=== PATIENT | female | born 1945 | race Caucasian/White ===

== ENCOUNTER → 2016-09-18 | Outpatient (CLI) | payer MEDICARE, OTHER | LOC: WI 09:36 | PROVIDERS: ATTEND Family Medicine | DX: Z12.31 Encounter for screening mammogram for malignant neoplasm of breast (principal); Z13.820 Encounter for screening for osteoporosis | CPT/HCPCS: 77080; G0202; 77067 ==

== ENCOUNTER 2018-08-14 16:42 | Inpatient (IN) | payer MEDICARE, OTHER ==
[2018-08-14] MEDS ORDERED: ACETAMINOPHEN 325 MG TABLET PO ONE (17:09)
--- NOTE | 2018-08-14 17:12 | ER Document Report ---
ED Fall - General Stated Complaint: NAUSEA/VOMITING Time Seen by Provider: 08/14/18 16:56 Primary Care Provider: RAMSEY NARANJO MD [Primary Care Provider] - Follow up as needed Information source: Patient TRAVEL OUTSIDE OF THE [place] IN LAST 30 DAYS: No - HPI Patient complains to provider of: Nausea vomiting Notes: Patient is here with complaints of pain in the right hip and right elbow with nausea vomiting. The patient has had prior right hip replacement. She states that she fell yesterday at home landing on her right elbow and her right hip and was diagnosed with a right pelvis fracture and a right elbow fracture at [place]. She states that they spoke with her orthopedist who recommended that the patient be placed in a sling, and she could follow-up in the office as an outpatient. She was given a prescription for tramadol as well as Zofran. She states that typically she does well with tramadol as she does not tolerate other narcotic types of pain medication. She states that since last evening she has been having nausea vomiting, she is not been able to keep her pain medication down which is caused her to have increasing pain. She does complain of a headache. She is on blood thinning medications. She does not believe that she struck her head when she fell, but she states that she has had a headache since she fell yesterday. Headache is getting somewhat worse. She denies any unilateral numbness, tingling, weakness. No chest pain or shortness of breath. No abdominal pain. No diarrhea. No rash. No fever. Pain in her elbow and hip is constant, moderate, worse with movement, better with rest. No other specific complaints at this time. - Related data Allergies/Adverse Reactions: codeine [Codeine] Allergy (Verified 08/14/18 17:46) metronidazole [Metronidazole] Allergy (Verified 08/14/18 17:46) morphine [Morphine] Allergy (Verified 08/14/18 17:46) procaine HCl [From Novocain] Allergy (Verified 08/14/18 17:46) Oxnqgzd-Nuk-Zeu Reductase Inhibitor Allergy (Verified 08/14/18 17:46) Past Medical History - Social History Smoking Status: Unknown if Ever Smoked Family History: Reviewed & Not Pertinent GI Medical History: Reports: Hx Gastroesophageal Reflux Disease Past Surgical History: Reports: Hx Orthopedic Surgery - left knee replacement - Immunizations Hx Diphtheria, Pertussis, Tetanus Vaccination: Yes Review of Systems - Review of Systems -: Yes All other systems reviewed and negative Physical Exam - Vital signs Vitals: Temp Pulse Resp BP Pulse Ox 97.8 F 98 18 158/66 H 92 08/14/18 22:53 08/14/18 22:53 08/14/18 22:53 08/14/18 22:53 08/14/18 22:53 - Notes Notes: GENERAL: alert, cooperative, nontoxic, no distress. HEAD: normocephalic, atraumatic EYES: conjunctiva pink without discharge, no external redness or swelling. Pupils equal round react light bilaterally. Extra muscles are intact bilaterally. EARS: no external swelling, no external redness NOSE: atraumatic, no external swelling MOUTH/THROAT: mucous membranes moist and pink, posterior pharynx without er ythema, swelling, exudate. No trismus or drooling. NECK: soft, supple, full range of motion, no meningismus. CHEST: no distress, lungs clear and equal throughout. No wheezing, rales, rhonchi. CARDIAC: regular rate and rhythm, no murmur, normal capillary refill, normal pulses. No peripheral edema noted. ABDOMEN: Soft, nontender. No rebound tenderness or guarding. No mass. BACK: full range of motion, no CVA tenderness. EXTREMITIES: Tenderness to palpation to the right elbow. Slightly limited range of motion secondary to pain. Normal pulse and sensation distally. Normal compartments. Slightly limited range of motion of the right hip with pain and tenderness to palpation. No redness or swelling. Normal pulse and sensation distally. Knee exam is normal. NEURO: alert and oriented x 3, no focal deficits, full range of motion of all extremities. Cranial nerves II through XII are grossly intact. PYSCH: appropriate mood, affect. Patient is cooperative. SKIN: pink, warm, dry, no rash. Course - Re-evaluation Re-evalutation: 08/14/18 19:37 Patient is feeling better at this time but still has a decent amount of pain. Head CT is negative, CT of neck is negative. X-rays of the right elbow show a comminuted radial head fracture, x-rays of the right hip show an inferior and superior pubic rami fracture. Labs are unremarkable for any significant abnormalities. Patient is unable to ambulate on her own due to the fact that she has a fracture in her right pelvis as well as her right arm. Her who is at home with her recently had spinal surgery is unable to help lift her and she does not have anyone at the house to help her with her daily activities. Due to this, the patient believes that she needs to be admitted to the hospital. I do believe that this is reasonable with the patient is unable to g et her pain under control and is unable to ambulate on her own. Currently have a phone call placed with orthopedics to discuss her fractures with them. After this, we will plan to discuss the case with the hospitalist regarding admission. 08/14/18 20:17 Case discussed with the hospitalist states that the patient does not require admission to the hospital. Am concerned that the patient is unable to care for herself at home due to pain and the fact that she has no family at the house who is able to care for her either. Do believe that the patient may require admission to a [facility] facility or rehab facility due to the fact that she is unable to ambulate due to pain and has no family at the house that is able to help facilitate this. This point we will hold the patient socially in the emergency department overnight until she can be seen and evaluated by social work tomorrow morning. I have discussed the case with my attending physician who agrees with the plan. Patient will be cared for overnight by the oncoming provider. We will continue to monitor the patient throughout the night. 08/15/18 12:02 I have discussed the case with Dr. Naranjo, her primary care doctor. Since the patient is having intractable pain and unable to care for herself, we will admit her to observation for further evaluation and management and to hopefully help with some potential physical and occupational therapy. - Vital Signs Vital signs: Temp Pulse Resp BP Pulse Ox 98.2 F 88 16 126/61 H 94 08/15/18 07:13 08/15/18 07:13 08/15/18 07:13 08/15/18 07:13 08/15/18 07:13 - Laboratory Result Diagrams: 08/14/18 18:26 08/14/18 18:26 Laboratory results interpreted by me: 08/14/18 18:26 WBC 14.0 H Seg Neuts % (Manual) 93 H Lymphocytes % (Manual) 5 L Monocytes % (Manual) 2 L Abs Neuts (Manual) 13.0 H - Diagnostic Test Radiology reviewed: Image reviewed, Reports reviewed - CT head and neck negative for acute findings. X-rays of right hip show superior and inferior pubic rami fractures. X-ray of right elbow shows comminuted radial head fracture. Discharge - Discharge Clinical Impression: Pubic ramus fracture Qualifiers: Encounter type: initial encounter Fracture type: closed Laterality: right Qualified Code(s): S32.591A - Other specified fracture of right pubis, initial encounter for closed fracture Radial head fracture Qualifiers: Encounter type: initial encounter Fracture type: closed Fracture alignment: nondisplaced Laterality: right Qualified Code(s): S52.124A - Nondisplaced fracture of head of right radius, initial encounter for closed fracture Condition: Stable Disposition: ADMITTED OBSERVATION Admitting Provider: Ambrosio Unit Admitted: Medical Floor Referrals: RAMSEY NARANJO MD [Primary Care Provider] - Follow up as needed
--- NOTE | 2018-08-14 17:49 | RADIOLOGY REPORT (SQ) ---
EXAM DESCRIPTION: ELBOW RIGHT OVER 2 VIEWS COMPLETED DATE/TIME: 08/14/2018 5:38 pm REASON FOR STUDY: pain COMPARISON: None. NUMBER OF VIEWS: Four views. TECHNIQUE: AP, lateral, and both oblique radiographic images acquired of the right elbow. LIMITATIONS: None. FINDINGS: MINERALIZATION: Normal. BONES: Comminuted fracture nondisplaced radial head. JOINT: Joint effusion. SOFT TISSUES: No soft tissue swelling. No foreign body. OTHER: No other significant finding. IMPRESSION: Comminuted nondisplaced radial head fracture with joint effusion. TECHNICAL DOCUMENTATION: JOB ID: [id number] [email or web address]- All Rights Reserved Reading location - IP/workstation name: [email or web address]
--- NOTE | 2018-08-14 17:52 | RADIOLOGY REPORT (SQ) ---
EXAM DESCRIPTION: HIP RIGHT AP/LATERAL COMPLETED DATE/TIME: 08/14/2018 5:38 pm REASON FOR STUDY: pain COMPARISON: None. NUMBER OF VIEWS: Two views. TECHNIQUE: AP pelvis and additional frog-leg view of the right hip. LIMITATIONS: None. FINDINGS: There is diffuse osteopenia. Mildly displaced fractures are seen at the superior and infe rior right pubic rami. The patient is status post total right hip arthroplasty. The orthopedic hard hernandez appears intact. No acute fracture or dislocation at the right hip. The left hip joint is maint ained. Degenerative changes at the visualized lower lumbar spine. IMPRESSION: 1. Osteopenia. Mildly displaced fractures at the superior and inferior right pubic lana i. 2. Status post total right hip arthroplasty with no radiographic evidence for acute fracture at the r ight hip. TECHNICAL DOCUMENTATION: JOB ID: [id number] [email or web address] 2010 [employer]- All Rights Reserved Reading location - IP/workstation name: [email or web address]
--- NOTE | 2018-08-14 18:01 | RADIOLOGY REPORT (SQ) ---
EXAM DESCRIPTION: CT HEAD WITHOUT COMPLETED DATE/TIME: 08/14/2018 5:51 pm REASON FOR STUDY: pain COMPARISON: None. TECHNIQUE: Axial images acquired through the brain without intravenous contrast. Images reviewed wi th bone, brain and subdural windows. Images stored on PACS. All CT scanners at this facility use dose modulation, iterative reconstruction, and/or weight based d osing when appropriate to reduce radiation dose to as low as reasonably achievable (ALARA). [facility]: Dose Right [facility]: CareDose [facility]: Dose Right [facility]: Teradose 4D [facility]: Smart Double Fusion RADIATION DOSE: CT Rad equipment meets quality standard of care and radiation dose reduction techniq ues were employed. CTDIvol: 53.2 mGy. DLP: 1044 mGy-cm.mGy. LIMITATIONS: None. FINDINGS: VENTRICLES: Prominent. CEREBRUM: No mass effect. No hemorrhage. No midline shift. Areas of low density in the white matte r most likely due to chronic micro-vascular ischemic change. No evidence for acute territorial infar ction. CEREBELLUM: No hemorrhage. No alteration of density. No evidence for acute infarction. EXTRAAXIAL SPACES: Age-related involutional change. No fluid collections. ORBITS AND GLOBE: Symmetrical contour of the globes. CALVARIUM: No depressed fracture. PARANASAL SINUSES: No air-fluid level. SOFT TISSUES: No hematoma. IMPRESSION: No acute intracranial hemorrhage or depressed calvarial fracture. Chronic changes of at rophy and microvascular ischemia. EVIDENCE OF ACUTE STROKE: NO. TECHNICAL DOCUMENTATION: JOB ID: [id number] [facility] Quality ID # [id number]: Final reports with documentation of one or more dose reduction techniques (e.g., Au tomated exposure control, adjustment of the mA and/or kV according to patient size, use of iterative reconstruction technique) 2010 [employer]- All Rights Reserved Reading location - IP/workstation name: [email or web address]
--- NOTE | 2018-08-14 18:08 | RADIOLOGY REPORT (SQ) ---
EXAM DESCRIPTION: CT CERVICAL SPINE WITHOUT COMPLETED DATE/TIME: 08/14/2018 5:51 pm REASON FOR STUDY: pain COMPARISON: None. TECHNIQUE: Axial images acquired through the cervical spine without intravenous contrast. Images re viewed with lung, soft tissue and bone windows. Reconstructed coronal and sagittal MPR images review ed. Images stored on PACS. All CT scanners at this facility use dose modulation, iterative reconstruction, and/or weight based d osing when appropriate to reduce radiation dose to as low as reasonably achievable (ALARA). [facility]: Dose Right [facility]: CareDose [facility]: Dose Right [facility]: Teradose 4D [facility]: Smart Technologies RADIATION DOSE: CT Rad equipment meets quality standard of care and radiation dose reduction techniq ues were employed. CTDIvol: 17.2 mGy. DLP: 384 mGy-cm. mGy. LIMITATIONS: None. FINDINGS: ALIGNMENT: Anatomic. MINERALIZATION: Normal. VERTEBRAL BODIES: No fractures or dislocation. DISCS: Multilevel disc space narrowing with osteophytes. FACETS, LATERAL MASSES, POSTERIOR ELEMENTS: Facet arthropathy. No fractures. No dislocation. HARDWARE: None in the spine. VISUALIZED RIBS: No fractures. LUNG APICES AND SOFT TISSUES: Linear atelectasis/ scarring at the visualized right lung apex. IMPRESSION: No acute fracture at the cervical spine. Degenerative changes. TECHNICAL DOCUMENTATION: JOB ID: [id number] [place]- Quality ID # [id number]: Final reports with documentation of one or more dose reduction techniques (e.g., Au tomated exposure control, adjustment of the mA and/or kV according to patient size, use of iterative reconstruction technique) 2010 [employer]- All Rights Reserved Reading location - IP/workstation name: [email or web address]
[2018-08-14 18:58] LABS: HEMATOCRIT 39.5 % (36.0-47.0); HEMOGLOBIN 13.1 g/dL (12.0-15.5); MEAN CORPUSCULAR HGB CONC 33.3 g/dL (32.0-36.0); MEAN CORPUSCULAR VOLUME 87 fl (80-97); PLATELET COUNT 190 10^3/uL (150-450); RED BLOOD COUNT 4.53 10^6/uL (3.72-5.28); RED CELL DISTRIBUTION WIDTH 13.8 % (11.5-14.0)
[2018-08-14 19:14] LABS: ABSOLUTE LYMPHOCYTES# (MANUAL) 0.7 10^3/uL (0.5-4.7); ABSOLUTE MONOCYTES # (MANUAL) 0.3 10^3/uL (0.1-1.4); BASOPHILS % (MANUAL) 0 % (0-2); EOSINOPHILS % (MANUAL) 0 % (0-6); LYMPHOCYTES % (MANUAL) 5 % (13-45); MONOCYTES % (MANUAL) 2 % (3-13); SEGMENTED NEUTROPHILS % (MAN) 93 % (42-78); TOTAL CELLS COUNTED 100
[2018-08-14 19:15] LABS: PLATELET COMMENT ADEQUATE; RBC MORPHOLOGY COMMENT NORMO-CYTIC/CHROMIC; TOXIC GRANULATION 1+
[2018-08-14 19:19] LABS: ALANINE AMINOTRANSFERASE 27 U/L (9-52); ALBUMIN 4.3 g/dL (3.5-5.0); ALKALINE PHOSPHATASE 75 U/L (38-126); ANION GAP 12 (5-19); ASPARTATE AMINO TRANSFERASE 18 U/L (14-36); BILIRUBIN,DIRECT 0.3 mg/dL (0.0-0.4); BILIRUBIN,TOTAL 0.6 mg/dL (0.2-1.3); BLOOD UREA NITROGEN 16 mg/dL (7-20); CALCIUM 9.3 mg/dL (8.4-10.2); CARBON DIOXIDE 24 mmol/L (22-30); CHLORIDE 104 mmol/L (98-107); GLUCOSE 110 mg/dL (75-110); POTASSIUM 4.1 mmol/L (3.6-5.0); SODIUM 140.4 mmol/L (137-145); TOTAL PROTEIN 7.1 g/dL (6.3-8.2)
[2018-08-14] MEDS ORDERED: ONDANSETRON HCL INJ/PF 4 MG/2 ML SDV IV PRN (20:19)
[2018-08-14] MEDS ORDERED: IBUPROFEN 400 MG TABLET PO PRN (20:19)
[2018-08-14] MEDS: TRAMADOL HCL 50 MG TABLET PO PRN (23:09)
[2018-08-15] MEDS: ACETAMINOPHEN 325 MG TABLET PO PRN ×2 (07:51→23:25)
[2018-08-15] MEDS ORDERED: PANTOPRAZOLE SODIUM 40 MG TABLET.DR PO ONE (09:37)
[2018-08-15] MEDS: TRAMADOL HCL 50 MG TABLET PO PRN (18:52)
[2018-08-15] MEDS: ENOXAPARIN SODIUM INJ 40 MG/0.4 ML DISP.SYRIN SUBCUT SCH (18:53)
[2018-08-15] MEDS: GABAPENTIN 300 MG CAPSULE PO SCH ×2 (18:53→21:05)
[2018-08-15] MEDS: DULOXETINE HCL 30 MG CAPSULE.DR PO SCH (18:53)
--- NOTE | 2018-08-15 19:46 | PDOC H&P ---
History of Present Illness Admission Date/PCP: 08/15/18 12:16 RAMSEY NARANJO MD Patient complains of: 2d slipped & fell on R hip elbow History of Present Illness: PHOENIX VÁZQUEZ is a 72 year old female 1d fell. sick. Cant move enough to care for self. Past Medical History Cardiac Medical History: Reports: None Pulmonary Medical History: Reports: None EENT Medical History: Reports: None Neurological Medical History: Reports: Other - vertigo Endocrine Medical History: Reports: Hypothyroidism Renal/ Medical History: Reports: None Malignancy Medical History: Reports: None GI Medical History: Reports: Gastroesophageal Reflux Disease Musculoskeltal Medical History: Reports: Arthritis, Other - porosis Skin Medical History: Reports: None Psychiatric Medical History: Reports: None Traumatic Medical History: Reports: None Infectious Medical History: Reports: None Past Surgical History Past Surgical History: Reports: Appendectomy, Hysterectomy, Orthopedic Surgery - left knee replacement, Other - zenkers Social History Lives with: Family Smoking Status: Never Smoker Frequency of Alcohol Use: None Hx Recreational Drug Use: No Hx Prescription Drug Abuse: No - Advance Directive Resuscitation Status: Full Code Family History Family History: CVA, Malignancy Parental Family History Reviewed: Yes Children Family History Reviewed: Yes Sibling(s) Family History Reviewed.: Yes Medication/Allergy Home Medications: Multivitamin [Multivitamins] 1 tab PO DAILY 09/18/13 Ubidecarenone [Co Q-10] 200 mg PO DAILY 09/18/13 l Gasseri/B Bifidum/B Longum [SamsonTouristEye Colon Health Capsule] 1 tab PO QHS 09/18/13 Esomeprazole Magnesium [Nexium 24Hr] 20 mg PO BID 08/15/18 Fexofenadine HCl [Michelle] 180 mg PO DAILY 08/15/18 Fiber [Fiber Choice] 1 each PO DAILY 08/15/18 Montelukast Sodium [Singulair 10 mg Tablet] 10 mg PO QHS 08/15/18 Allergies/Adverse Reactions: codeine [Codeine] Allergy (Verified 08/14/18 17:46) metronidazole [Metronidazole] Allergy (Verified 08/14/18 17:46) morphine [Morphine] Allergy (Verified 08/14/18 17:46) procaine HCl [From Novocain] Allergy (Verified 08/14/18 17:46) Czjlkce-Qse-Nik Reductase Inhibitor Allergy (Verified 08/14/18 17:46) Review of Systems Constitutional: ABSENT: fever(s), headache(s), weight loss Nose, Mouth, and Throat: ABSENT: sore throat Cardiovascular: ABSENT: chest pain, dyspnea on exertion, orthropnea Respiratory: ABSENT: cough Gastrointestinal: ABSENT: abdominal pain, constipation, diarrhea, hematochezia, vomiting Genitourinary: ABSENT: dysuria, hematuria Integumentary: ABSENT: rash Physical Exam Vital Signs: Temp Pulse Resp BP Pulse Ox 98.1 F 94 16 122/52 L 93 08/15/18 13:13 08/15/18 13:13 08/15/18 13:13 08/15/18 13:13 08/15/18 13:13 Intake & Output 08/14/18 08/15/18 08/16/18 07:59 07:59 07:59 Weight 150 lb General appearance: PRESENT: no acute distress Eye exam: ABSENT: conjunctival injection, scleral icterus Mouth exam: PRESENT: moist Neck exam: ABSENT: lymphadenopathy, tenderness, thyromegaly, tracheal deviation Respiratory exam: PRESENT: clear to auscultation mavis Cardiovascular exam: ABSENT: diastolic murmur, irregular rhythm, systolic murmur GI/Abdominal exam: ABSENT: mass, organolmegaly, tenderness Extremities exam: ABSENT: pedal edema Neurological exam: PRESENT: oriented to situation Psychiatric exam: PRESENT: appropriate affect Results Laboratory Results: Abnormal - 24 hr 08/14/18 18:26 WBC 14.0 H Seg Neuts % (Manual) 93 H Lymphocytes % (Manual) 5 L Monocytes % (Manual) 2 L Abs Neuts (Manual) 13.0 H Impressions: Cervical Spine CT 08/14/18 17:09 IMPRESSION: No acute fracture at the cervical spine. Degenerative changes. Elbow X-Ray 08/14/18 17:09 IMPRESSION: Comminuted nondisplaced radial head fracture with joint effusion. Head CT 08/14/18 17:09 IMPRESSION: No acute intracranial hemorrhage or depressed calvarial fracture. Chronic changes of atrophy and microvascular ischemia. EVIDENCE OF ACUTE STROKE: NO. Hip/Pelvis X-Ray 08/14/18 17:09 IMPRESSION: 1. Osteopenia. Mildly displaced fractures at the superior and inferior right pubic rami. 2. Status post total right hip arthroplasty with no radiographic evidence for acute fracture at the right hip. Assessment & Plan - Diagnosis (1) Pubic ramus fracture Qualifiers: Encounter type: subsequent encounter Fracture type: closed Laterality: right Fracture healing: with routine healing Qualified Code(s): S32.591D - Other specified fracture of right pubis, subsequent encounter for fracture with routine healing Is this a current diagnosis for this admission?: Yes Plan: duloxetine gabapentin (2) Radial head fracture Qualifiers: Encounter type: subsequent encounter Fracture type: closed Fracture alignment: displaced Laterality: right Fracture healing: with routine healing Qualified Code(s): S52.121D - Displaced fracture of head of right radius, subsequent encounter for closed fracture with routine healing Is this a current diagnosis for this admission?: Yes - Inpatient Certification Medical Necessity: Failure to Improve With Outpatient Therapy, Significant Comorbidiites Make Outpatient Treatment Too Risky, Need Close Monitoring Due to Risk of Patient Decompensation, Need for Pain Control, Risk of Complication if Not Cared For in Hospital
--- NOTE | 2018-08-16 07:26 | PDOC PROGRESS REPORT ---
Subjective Progress Note for:: 08/16/18 Subjective:: comfortable. Declined duloxetine gabapentin. Reason For Visit: PUBIC RAMUS FRACTURE,RADIAL HEAD FRACTURE Physical Exam Vital Signs: Temp Pulse Resp BP Pulse Ox 97.9 F 91 17 135/54 H 91 L 08/16/18 00:20 08/16/18 00:20 08/16/18 00:20 08/16/18 00:20 08/16/18 00:20 Intake & Output 08/14/18 08/15/18 08/16/18 07:59 07:59 07:59 Weight 150 lb General appearance: PRESENT: no acute distress Respiratory exam: PRESENT: clear to auscultation mavis Cardiovascular exam: ABSENT: diastolic murmur, irregular rhythm, systolic murmur GI/Abdominal exam: ABSENT: mass, organolmegaly, tenderness Neurological exam: PRESENT: oriented to situation Psychiatric exam: PRESENT: appropriate affect Results Laboratory Results: 08/14/18 18:26 08/14/18 18:26 Impressions: Cervical Spine CT 08/14/18 17:09 IMPRESSION: No acute fracture at the cervical spine. Degenerative changes. Elbow X-Ray 08/14/18 17:09 IMPRESSION: Comminuted nondisplaced radial head fracture with joint effusion. Head CT 08/14/18 17:09 IMPRESSION: No acute intracranial hemorrhage or depressed calvarial fracture. Chronic changes of atrophy and microvascular ischemia. EVIDENCE OF ACUTE STROKE: NO. Hip/Pelvis X-Ray 08/14/18 17:09 IMPRESSION: 1. Osteopenia. Mildly displaced fractures at the superior and inferior right pubic rami. 2. Status post total right hip arthroplasty with no radiographic evidence for acute fracture at the right hip. Assessment & Plan - Diagnosis (1) Pubic ramus fracture Qualifiers: Encounter type: subsequent encounter Fracture type: closed Laterality: right Fracture healing: with routine healing Qualified Code(s): S32.591D - Other specified fracture of right pubis, subsequent encounter for fracture with routine healing Is this a current diagnosis for this admission?: Yes Plan: suggested SNF out of pocket (2) Radial head fracture Qualifiers: Encounter type: subsequent encounter Fracture type: closed Fracture alignment: displaced Laterality: right Fracture healing: with routine healing Qualified Code(s): S52.121D - Displaced fracture of head of right radius, subsequent encounter for closed fracture with routine healing Is this a current diagnosis for this admission?: Yes
[2018-08-16] MEDS: ENOXAPARIN SODIUM INJ 40 MG/0.4 ML DISP.SYRIN SUBCUT SCH (10:04)
[2018-08-16] MEDS: LUBIPROSTONE 24 MCG CAPSULE PO SCH ×2 (10:04→21:44)
[2018-08-16] MEDS: DULOXETINE HCL 30 MG CAPSULE.DR PO SCH (10:04)
[2018-08-16] MEDS ORDERED: ACETAMINOPHEN 325 MG TABLET PO PRN (10:31)
[2018-08-16] MEDS ORDERED: TRAMADOL HCL 50 MG TABLET PO PRN (10:32)
[2018-08-16] MEDS ORDERED: IBUPROFEN 400 MG TABLET PO PRN (10:32)
[2018-08-16] MEDS ORDERED: ONDANSETRON HCL INJ/PF 4 MG/2 ML SDV IV PRN (14:58)
[2018-08-16] MEDS: ACETAMINOPHEN 325 MG TABLET PO PRN ×2 (15:33→21:48)
--- NOTE | 2018-08-16 15:58 | PDOC CONSULTATION ---
Consultation Consult Date: 08/16/18 Consult reason:: Evaluation for admission to acute inpatient rehabilitation History of Present Illness Admission Date/PCP: 08/15/18 12:16 RAMSEY NARANJO MD Patient complains of: Right low back and right elbow pain History of Present Illness: PHOENIX BOSE is a 72-year-old female with past medical history of vertigo, hypothyroidism, GERD, arthritis, osteoporosis, appendectomy, hysterectomy, left total knee arthroplasty, right total hip arthroplasty, and Zenker's diverticulum admitted to [facility] on 08/14/2018 after presenting with intractable pain and difficulty ambulating as well as nausea, vomiting, and a headache. Interestingly, she had been seen the day before at [facility] in the emergency department after initially falling while attempting to move plants in the rain and landing on her right elbow and hip. She reports that she was found to have an elbow fracture and a pelvic fracture and recommended a sling with outpatient orthopedic follow-up. X-ray of the right elbow demonstrates a comminuted nondisplaced radial head fracture with joint effusion; x-ray of the right hip demonstrates osteopenia, mildly displaced fractures at the superior and inferior pubic rami, and status post total hip arthroplasty with no radiographic evidence of acute fracture at the right hip; CT head demonstrates no acute intracranial hemorrhage or depressed calvarial fracture with chronic changes of atrophy and microvascular ischemia present; and CT of the cervical spine demonstrates degenerative changes with no acute fracture. She is being treated with tramadol for pain as she is unable to tolerate stronger narcotics. Physical medicine and rehabilitation consultation was requested to evaluate the patient for admission to acute inpatient rehabilitation. Today, the patient was seen and examined with her nurse at bedside. She complains of right-sided low back pain and right elbow pain as well as resulting difficulty mobilizing in bed. She also complains of constipation and intermittent nausea. Past Medical History Cardiac Medical History: Reports: None Pulmonary Medical History: Reports: None EENT Medical History: Reports: None Neurological Medical History: Reports: Other - vertigo Endocrine Medical History: Reports: Hypothyroidism Renal/ Medical History: Reports: None Malignancy Medical History: Reports: None GI Medical History: Reports: Gastroesophageal Reflux Disease Musculoskeltal Medical History: Reports: Arthritis, Other - porosis Skin Medical History: Reports: None Psychiatric Medical History: Reports: None Traumatic Medical History: Reports: None Infectious Medical History: Reports: None Past Surgical History Past Surgical History: Reports: Appendectomy, Hysterectomy, Orthopedic Surgery - left knee replacement, Other - zenkers Social History Lives with: Family Smoking Status: Never Smoker Frequency of Alcohol Use: None Hx Recreational Drug Use: No Drugs: None Hx Prescription Drug Abuse: No Past Social History Note: Phoenix Bose lives with her in a 1 level home with 4 steps to enter and 0 steps to the bedroom and bathroom. She drinks 1 glass of wine 3 times a week and does not smoke or use drugs. Of note, the patient's recently had back surgery and is unable to provide assistance upon discharge. The patient's son is able to provide intermittent assistance. Prior Functional Status: Active and independent with mobility and all ADLs. Ambulates without an assist device. Current Functional Status: Per therapy notes, the patient currently requires minimum assistance of 1-2 people for bed mobility, transfers, and sidestepping 5-6 steps with a rolling walker. She requires minimum assistance for upper body dressing and dependent assistance for lower body dressing. - Advance Directive Resuscitation Status: Full Code Family History Family History: CVA, Malignancy Parental Family History Reviewed: Yes Children Family History Reviewed: Yes Sibling(s) Family History Reviewed.: Yes Medication/Allergy Home Medications: Multivitamin [Multivitamins] 1 tab PO DAILY 09/18/13 Ubidecarenone [Co Q-10] 200 mg PO DAILY 09/18/13 l Gasseri/B Bifidum/B Longum [[employer] Capsule] 1 tab PO QHS 09/18/13 Esomeprazole Magnesium [Nexium 24Hr] 20 mg PO BID 08/15/18 Fexofenadine HCl [Michelle] 180 mg PO DAILY 08/15/18 Fiber [Fiber Choice] 1 each PO DAILY 08/15/18 Montelukast Sodium [Singulair 10 mg Tablet] 10 mg PO QHS 08/15/18 Allergies/Adverse Reactions: codeine [Codeine] Allergy (Verified 08/14/18 17:46) metronidazole [Metronidazole] Allergy (Verified 08/14/18 17:46) morphine [Morphine] Allergy (Verified 08/14/18 17:46) procaine HCl [From Novocain] Allergy (Verified 08/14/18 17:46) Akatcbm-Hyn-Gqq Reductase Inhibitor Allergy (Verified 08/14/18 17:46) Review of Systems Review of Systems: Constitutional: No fevers, chills, sweats, weight loss Eye: No recent visual problems, no blurry vision, no double vision ENMT: No ear pain, nasal congestion, sore throat Respiratory: No shortness of breath, cough, sputum production Cardiovascular: No chest pain, palpitations, syncope Gastrointestinal: No vomiting, diarrhea, abdominal pain. Positive for nausea without vomiting. Genitourinary: No hematuria, dysuria, flank or suprapubic pain Gaston/Lymph: Negative for bruising tendency, swollen lymph glands Endocrine: Negative for excessive thirst, excessive hunger, extreme fatigue Musculoskeletal: Positive for right-sided low back pain and right elbow pain with resulting decreased active range of motion. Integumentary: No rash, pruritus, abrasions Neurologic: No numbness, speech problems. Positive for headache and weakness secondary to pain. Psychiatric: No anxiety, depression Physical Exam Vital Signs: Temp Pulse Resp BP Pulse Ox 97.7 F 90 16 138/61 H 95 08/16/18 11:14 08/16/18 11:14 08/16/18 11:14 08/16/18 11:14 08/16/18 11:14 Intake & Output 08/15/18 08/16/18 08/17/18 06:59 06:59 06:59 Weight 68.039 kg Exam: General: Awake and Alert. No acute distress. Resting comfortably in bed with her nurse at bedside. Head: Normocephalic. Atraumatic. Eyes: Pupils equal, round, and reactive to light. EOMI. Sclera white. Ears: No drainage noted. Nose: Nares normal & without exudate. Oropharynx: Moist mucous membranes. Neck: Supple movements. Cardiovascular: Regular rate & rhythm. No murmurs, rubs, or gallops appreciated. Pulmonary: Lungs clear to auscultation bilaterally. No increased work of breathing. Gastrointestinal: Abdomen soft, non-tender, non-distended. Normoactive bowel sounds. Skin: Texture and turgor normal. Warm and dry. The right upper extremity is Gera wrapped. Psychiatric: Judgement and insight appear to be good. Patient is oriented to date, location, and situation. Affect appropriate. Extremities: No clubbing, cyanosis, or inflammatory changes. Neurological: CN III-XII grossly intact. Sensation to light touch is grossly intact. Speech is fluent with good content and without dysarthria. Muscle Strength: Full 5/5 strength in all major muscle groups of the 4 extremities, except 1/5 strength of bilateral hip flexors secondary to pain. Only record center coordinator strength was tested in the right upper extremity, and this is 5 out of 5. Results Laboratory Results: 08/14/18 18:26 08/14/18 18:26 Impressions: Cervical Spine CT 08/14/18 17:09 IMPRESSION: No acute fracture at the cervical spine. Degenerative changes. Elbow X-Ray 08/14/18 17:09 IMPRESSION: Comminuted nondisplaced radial head fracture with joint effusion. Head CT 08/14/18 17:09 IMPRESSION: No acute intracranial hemorrhage or depressed calvarial fracture. Chronic changes of atrophy and microvascular ischemia. EVIDENCE OF ACUTE STROKE: NO. Hip/Pelvis X-Ray 08/14/18 17:09 IMPRESSION: 1. Osteopenia. Mildly displaced fractures at the superior and inferior right pubic rami. 2. Status post total right hip arthroplasty with no radiographic evidence for acute fracture at the right hip. Assessment and Plan - Plan Summary Plan Summary: 72-year-old female with right radial head and right pubic rami fractures. 1. Gait and ADL Dysfunction secondary to right radial head and right pubic rami fractures. - Continue PT and OT to maximize mobility, safety, endurance, and self-care after she is evaluated by orthopedic surgery. 2. Right pubic rami fractures - Discussed with Dr. Naranjo and requested an orthopedic surgery evaluation for weightbearing and treatment recommendations. (Ordered and pending) 3. Right radial head fracture - Discussed with Dr. Naranjo and requested an orthopedic surgery evaluation for weightbearing and treatment recommendations. (Ordered and pending) 4. Chronic constipation - Continue Amitiza - Consider bowel regimen: Colace 100 mg twice daily, MiraLAX 1 packet daily, and Dulcolax suppository daily as needed 5. Pain control - Tylenol and tramadol as needed - Patient complains of headache and nausea, but no acute intracranial findings on CT head. Continue symptomatic treatment. - Continue management per primary service 6. Disposition - Based on the patient's diagnosis, medical co-morbidities, and current fun ctional status, she may be a good candidate for acute inpatient rehabilitation. First, the patient is to be evaluated by orthopedic surgery for weightbearing recommendations as well as any further treatment that may be necessary. Subsequently, she will need to be evaluated by physical therapy and occupational therapy with these new recommendations in place. Finally, and insurance preauthorization will need to be obtained before the patient can be admitted to acute inpatient rehabilitation. This was discussed with the patient, and she prefers to go to [facility] acute inpatient rehabilitation if insurance preauthorization can be obtained. This case was discussed with the patient's acute care therapists, interstate planner, and nurse on the floor. Thank you for allowing us to participate in the care of this patient. Please call with any questions. A total of 65 minutes was spent on [id number] communication with the patient and coordination of care.
--- NOTE | 2018-08-17 07:56 | PDOC PROGRESS REPORT ---
Subjective Progress Note for:: 08/17/18 Subjective:: still needs help to transfer Reason For Visit: PUBIC RAMUS FRACTURE,RADIAL HEAD FRACTURE Physical Exam Vital Signs: Temp Pulse Resp BP Pulse Ox 98.3 F 83 16 140/60 H 95 08/16/18 22:00 08/16/18 22:00 08/16/18 22:00 08/16/18 22:00 08/16/18 22:00 Intake & Output 08/15/18 08/16/18 08/17/18 07:59 07:59 07:59 Intake Total 740 Output Total 780 Balance -40 Weight 150 lb General appearance: PRESENT: no acute distress Respiratory exam: PRESENT: clear to auscultation mavis Cardiovascular exam: ABSENT: diastolic murmur, irregular rhythm, systolic murmur GI/Abdominal exam: ABSENT: mass, organolmegaly, tenderness Extremities exam: ABSENT: pedal edema Neurological exam: PRESENT: oriented to situation Psychiatric exam: PRESENT: appropriate affect Results Laboratory Results: 08/14/18 18:26 08/14/18 18:26 Impressions: Cervical Spine CT 08/14/18 17:09 IMPRESSION: No acute fracture at the cervical spine. Degenerative changes. Elbow X-Ray 08/14/18 17:09 IMPRESSION: Comminuted nondisplaced radial head fracture with joint effusion. Head CT 08/14/18 17:09 IMPRESSION: No acute intracranial hemorrhage or depressed calvarial fracture. Chronic changes of atrophy and microvascular ischemia. EVIDENCE OF ACUTE STROKE: NO. Hip/Pelvis X-Ray 08/14/18 17:09 IMPRESSION: 1. Osteopenia. Mildly displaced fractures at the superior and inferior right pubic rami. 2. Status post total right hip arthroplasty with no radiographic evidence for acute fracture at the right hip. Assessment & Plan - Diagnosis (1) Pubic ramus fracture Qualifiers: Encounter type: subsequent encounter Fracture type: closed Laterality: right Fracture healing: with routine healing Qualified Code(s): S32.591D - Other specified fracture of right pubis, subsequent encounter for fracture with routine healing Is this a current diagnosis for this admission?: Yes Plan: Dr Pitt suggested acute rehab at if medicare authorizes. Ortho consult pending. (2) Radial head fracture Qualifiers: Encounter type: subsequent encounter Fracture type: closed Fracture alignment: displaced Laterality: right Fracture healing: with routine hea ling Qualified Code(s): S52.121D - Displaced fracture of head of right radius, subsequent encounter for closed fracture with routine healing Is this a current diagnosis for this admission?: Yes
[2018-08-17] MEDS: ACETAMINOPHEN 325 MG TABLET PO PRN ×2 (08:52→14:34)
--- NOTE | 2018-08-17 10:09 | PDOC CONSULTATION ---
Consultation Consult Date: 08/17/18 Consult reason:: 72-year-old white female status post fall with a right superior pubic ramus fracture and a right radial head fracture. History of Present Illness Admission Date/PCP: 08/15/18 12:16 RAMSEY NARANJO MD History of Present Illness: PHOENIX VÁZQUEZ is a 72 year old female She is a 72-year-old delightful middle-aged white female sitting up in recliner. She is status post right hip [place] [address] Corrigan. 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 She has fallen and sustained a right pubic ramus fracture as well as a right radial head fracture. She is concerned about how she is going to return home and care for herself as well as her . Past Medical History Cardiac Medical History: Reports: None Pulmonary Medical History: Reports: None EENT Medical History: Reports: None Neurological Medical History: Reports: Other - vertigo Endocrine Medical History: Reports: Hypothyroidism Renal/ Medical History: Reports: None Malignancy Medical History: Reports: None GI Medical History: Reports: Gastroesophageal Reflux Disease Musculoskeltal Medical History: Reports: Arthritis, Other - porosis Skin Medical History: Reports: None Psychiatric Medical History: Reports: None Traumatic Medical History: Reports: None Infectious Medical History: Reports: None Past Surgical History Past Surgical History: Reports: Appendectomy, Hysterectomy, Orthopedic Surgery - left knee replacement, right hip replacement, Other - zenkers Social History Information Source: Patient, [facility] Records Lives with: Family Smoking Status: Never Smoker Frequency of Alcohol Use: None Hx Recreational Drug Use: No Drugs: None Hx Prescription Drug Abuse: No - Advance Directive Resuscitation Status: Full Code Family History Family History: Reviewed & Not Pertinent, CVA, Malignancy Parental Family History Reviewed: No Children Family History Reviewed: No Sibling(s) Family History Reviewed.: No Medication/Allergy Home Medications: Multivitamin [Multivitamins] 1 tab PO DAILY 09/18/13 Ubidecarenone [Co Q-10] 200 mg PO DAILY 09/18/13 l Gasseri/B Bifidum/B Longum [[id number] Health Capsule] 1 tab PO QHS 09/18/13 Esomeprazole Magnesium [Nexium 24Hr] 20 mg PO BID 08/15/18 Fexofenadine HCl [Michelle] 180 mg PO DAILY 08/15/18 Fiber [Fiber Choice] 1 each PO DAILY 08/15/18 Montelukast Sodium [Singulair 10 mg Tablet] 10 mg PO QHS 08/15/18 Allergies/Adverse Reactions: codeine [Codeine] Allergy (Verified 08/14/18 17:46) metronidazole [Metronidazole] Allergy (Verified 08/14/18 17:46) morphine [Morphine] Allergy (Verified 08/14/18 17:46) procaine HCl [From Novocain] Allergy (Verified 08/14/18 17:46) Puojlij-Wij-Lia Reductase Inhibitor Allergy (Verified 08/14/18 17:46) Review of Systems All systems: as per PMH Physical Exam Vital Signs: Temp Pulse Resp BP Pulse Ox 36.6 C 90 15 135/55 H 94 08/17/18 07:16 08/17/18 07:16 08/17/18 07:16 08/17/18 07:16 08/17/18 07:16 Intake & Output 08/16/18 08/17/18 08/18/18 06:59 06:59 06:59 Intake Total 740 Output Total 780 Balance -40 Physical Exam: Delightful middle-aged white female sitting up in a recliner. She is alert oriented and appropriate. She is using Tylenol for pain control. General appearance: PRESENT: no acute distress, well-developed, well-nourished Head exam: PRESENT: normocephalic Respiratory exam: PRESENT: unlabored Cardiovascular exam: PRESENT: RRR Pulses: PRESENT: normal radial pulses, +1 pedal pulses bilateral Vascular exam: PRESENT: normal capillary refill GI/Abdominal exam: PRESENT: soft Rectal exam: PRESENT: deferred Extremities exam: PRESENT: tenderness - Over the right elbow, other - Right upper extremity immobilized in a posterior plaster splint. Right lower extremity is painful with passive range of motion. Leg lengths are equal. Distal neurovascular examination is intact. Neurological exam: PRESENT: alert, awake, oriented to person, oriented to place, oriented to time, oriented to situation, CN II-XII grossly intact. ABSENT: motor sensory deficit Psychiatric exam: PRESENT: appropriate affect, normal mood. ABSENT: homicidal ideation, suicidal ideation Skin exam: PRESENT: dry, intact, warm. ABSENT: cyanosis, rash Results Laboratory Results: 08/14/18 18:26 08/14/18 18:26 Impressions: Cervical Spine CT 08/14/18 17:09 IMPRESSION: No acute fracture at the cervical spine. Degenerative changes. Elbow X-Ray 08/14/18 17:09 IMPRESSION: Comminuted nondisplaced radial head fracture with joint effusion. Head CT 08/14/18 17:09 IMPRESSION: No acute intracranial hemorrhage or depressed calvarial fracture. Chronic changes of atrophy and microvascular ischemia. EVIDENCE OF ACUTE STROKE: NO. Hip/Pelvis X-Ray 08/14/18 17:09 IMPRESSION: 1. Osteopenia. Mildly displaced fractures at the superior and inferior right pubic rami. 2. Status post total right hip arthroplasty with no radiographic evidence for acute fracture at the right hip. Status: Imported from PACS Assessment & Plan - Diagnosis (1) Pubic ramus fracture Qualifiers: Encounter type: subsequent encounter Fracture type: closed Laterality: right Fracture healing: with routine healing Qualified Code(s): S32.591D - Other specified fracture of right pubis, subsequent encounter for fracture with routine healing Is this a current diagnosis for this admission?: Yes Plan: Patient can mobilize and weightbearing as tolerated basis. This is inherently a stable fracture but there will be pain associated with it. I have taken liberty of starting Caldolor for pain control to enable her to make more progress with physical therapy. (2) Radial head fracture Qualifiers: Encounter type: subsequent encounter Fracture type: closed Fracture alignment: displaced Laterality: right Fracture healing: with routine healing Qualified Code(s): S52.121D - Displaced fracture of head of right radius, subsequent encounter for closed fracture with routine healing Is this a current diagnosis for this admission?: Yes Plan: Likewise this is a stable fracture but I think will be difficult for the patient to weight-bear on her wrists as in using a walker. Potentially the use of a platform walker will allow her to mobilize. - Time Time Spent: 50 to 70 Minutes Anticipated discharge: Home with Homehealth, SNF Within: Other - Plan Summary Plan Summary: Patient can mobilize and weight-bear as tolerated basis with physical therapy using a platform walker. I think it will be difficult for the patient to return home and be a caregiver for both herself and her . intermediate facility placement for a short period of time may be a better option for her.
[2018-08-17] MEDS: ENOXAPARIN SODIUM INJ 40 MG/0.4 ML DISP.SYRIN SUBCUT SCH (10:31)
[2018-08-17] MEDS: PANTOPRAZOLE SODIUM 40 MG TABLET.DR PO SCH (10:44)
[2018-08-17] MEDS: DULOXETINE HCL 30 MG CAPSULE.DR PO SCH (10:44)
[2018-08-17] MEDS: LUBIPROSTONE 24 MCG CAPSULE PO SCH ×2 (10:46→21:14)
[2018-08-17] MEDS: IBUPROFEN 800 MG in NORMAL SALINE 250 ML IV SCH ×2 (14:32→21:14)
[2018-08-17] MEDS: MONTELUKAST SODIUM 10 MG TABLET PO SCH (21:14)
[2018-08-18] MEDS: IBUPROFEN 800 MG in NORMAL SALINE 250 ML IV SCH ×3 (06:40→21:57)
--- NOTE | 2018-08-18 07:02 | PDOC PROGRESS REPORT ---
Subjective Progress Note for:: 08/18/18 Reason For Visit: PUBIC RAMUS FRACTURE,RADIAL HEAD FRACTURE 72-year-old female with a pubic ramus fracture and a right radial head fracture both of which are treated nonoperatively. Patient in good spirits this morning. Physical Exam Vital Signs: Temp Pulse Resp BP Pulse Ox 36.8 C 85 16 122/51 L 94 08/17/18 15:20 08/17/18 15:20 08/17/18 15:20 08/17/18 15:20 08/17/18 15:20 Intake & Output 08/17/18 08/18/18 08/19/18 06:59 06:59 06:59 Intake Total 740 1325 Output Total 780 500 Balance -40 825 General appearance: PRESENT: no acute distress Head exam: PRESENT: normocephalic Respiratory exam: PRESENT: unlabored Cardiovascular exam: PRESENT: RRR Pulses: PRESENT: normal radial pulses, +1 pedal pulses bilateral Vascular exam: PRESENT: normal capillary refill GI/Abdominal exam: PRESENT: soft Rectal exam: PRESENT: deferred Extremities exam: PRESENT: other - Compressive dressing was removed from the right upper extremity this morning. There is some ecchymosis and swelling over the dorsal aspect of the elbow. There is tenderness to palpation over the radial head. Passive range of motion both terms of flexion-extension of the elbow as well as pronation supination of the forearm seem to be full without significant discomfort. Results Laboratory Results: 08/14/18 18:26 08/14/18 18:26 Impressions: Cervical Spine CT 08/14/18 17:09 IMPRESSION: No acute fracture at the cervical spine. Degenerative changes. Elbow X-Ray 08/14/18 17:09 IMPRESSION: Comminuted nondisplaced radial head fracture with joint effusion. Head CT 08/14/18 17:09 IMPRESSION: No acute intracranial hemorrhage or depressed calvarial fracture. Chronic changes of atrophy and microvascular ischemia. EVIDENCE OF ACUTE STROKE: NO. Hip/Pelvis X-Ray 08/14/18 17:09 IMPRESSION: 1. Osteopenia. Mildly displaced fractures at the superior and inferior right pubic rami. 2. Status post total right hip arthroplasty with no radiographic evidence for acute fracture at the right hip. Assessment & Plan - Diagnosis (1) Pubic ramus fracture Qualifiers: Encounter type: subsequent encounter Fracture type: closed Laterality: right Fracture healing: with routine healing Qualified Code(s): S32.591D - Other specified fracture of right pubis, subsequent encounter for fracture with routine healing Is this a current diagnosis for this admission?: Yes Plan: Mobilized with physical therapy. Platform walker seems to be appropriate and appreciated by the patient. (2) Radial head fracture Qualifiers: Encounter type: subsequent encounter Fracture type: closed Fracture alignment: displaced Laterality: right Fracture healing: with routine healing Qualified Code(s): S52.121D - Displaced fracture of head of right radius, subsequent encounter for closed fracture with routine healing Is this a current diagnosis for this admission?: Yes Plan: At this point because the fracture is such a small fragment it is not amenable to internal fixation and it does not seem to be a significant limited her of function of the right upper extremity I think he can be left open to allow the patient to begin to work on range of motion. - Time Time Spent with patient: 15-24 minutes
--- NOTE | 2018-08-18 07:24 | PDOC PROGRESS REPORT ---
Subjective Progress Note for:: 08/18/18 Subjective:: walkered 30'. Constipation gone off tramadol. Reason For Visit: PUBIC RAMUS FRACTURE,RADIAL HEAD FRACTURE Physical Exam Vital Signs: Temp Pulse Resp BP Pulse Ox 98.2 F 85 16 122/51 L 94 08/17/18 15:20 08/17/18 15:20 08/17/18 15:20 08/17/18 15:20 08/17/18 15:20 Intake & Output 08/16/18 08/17/18 08/18/18 07:59 07:59 07:59 Intake Total 740 1325 Output Total 780 500 Balance -40 825 General appearance: PRESENT: no acute distress Respiratory exam: PRESENT: clear to auscultation mavis Cardiovascular exam: ABSENT: diastolic murmur, irregular rhythm, systolic murmur GI/Abdominal exam: ABSENT: mass, organolmegaly, tenderness Extremities exam: ABSENT: pedal edema Neurological exam: ABSENT: oriented to situation Psychiatric exam: PRESENT: appropriate affect Results Laboratory Results: 08/14/18 18:26 08/14/18 18:26 Impressions: Cervical Spine CT 08/14/18 17:09 IMPRESSION: No acute fracture at the cervical spine. Degenerative changes. Elbow X-Ray 08/14/18 17:09 IMPRESSION: Comminuted nondisplaced radial head fracture with joint effusion. Head CT 08/14/18 17:09 IMPRESSION: No acute intracranial hemorrhage or depressed calvarial fracture. Chronic changes of atrophy and microvascular ischemia. EVIDENCE OF ACUTE STROKE: NO. Hip/Pelvis X-Ray 08/14/18 17:09 IMPRESSION: 1. Osteopenia. Mildly displaced fractures at the superior and inferior right pubic rami. 2. Status post total right hip arthroplasty with no radiographic evidence for acute fracture at the right hip. Assessment & Plan - Diagnosis (1) Pubic ramus fracture Qualifiers: Encounter type: subsequent encounter Fracture type: closed Laterality: right Fracture healing: with routine healing Qualified Code(s): S32.591D - Other specified fracture of right pubis, subsequent encounter for fracture with routine healing Is this a current diagnosis for this admission?: Yes Plan: checking on acute rehab (2) Radial head fracture Qualifiers: Encounter type: subsequent encounter Fracture type: closed Fracture alignment: displaced Laterality: right Fracture healing: with routine healing Qualified Code(s): S52.121D - Displaced fracture of head of right radius, subsequent encounter for closed fracture with routine healing Is this a current diagnosis for this admission?: Yes - Inpatient Certification Based on my medical assessment, after consideration of the patient's comorbidities, presenting symptoms, or acuity I expect that the services needed warrant INPATIENT care.: Yes I certify that my determination is in accordance with my understanding of Medicare's requirements for reasonable and necessary INPATIENT services [42 CFR 412.3e].: Yes Medical Necessity: Failure to Improve With Outpatient Therapy, Significant Comorbidiites Make Outpatient Treatment Too Risky, Need Close Monitoring Due to Risk of Patient Decompensation, Need For IV Fluids, Need for Pain Control, Risk of Complication if Not Cared For in Hospital, Risk of Diagnosis Which Will Require Inpatient Eval/Care/Monitoring
[2018-08-18] MEDS: PANTOPRAZOLE SODIUM 40 MG TABLET.DR PO SCH (07:56)
[2018-08-18] MEDS ORDERED: LUBIPROSTONE 24 MCG CAPSULE PO SCH (10:00)
[2018-08-18] MEDS: DULOXETINE HCL 30 MG CAPSULE.DR PO SCH ×2 (10:25→10:32)
[2018-08-18] MEDS: ENOXAPARIN SODIUM INJ 40 MG/0.4 ML DISP.SYRIN SUBCUT SCH (10:26)
[2018-08-18] MEDS: ACETAMINOPHEN 325 MG TABLET PO PRN ×2 (11:35→21:58)
[2018-08-18] MEDS: MONTELUKAST SODIUM 10 MG TABLET PO SCH (21:57)
[2018-08-19] MEDS: IBUPROFEN 800 MG in NORMAL SALINE 250 ML IV SCH (05:41)
--- NOTE | 2018-08-19 06:44 | PDOC TRANSFER SUMMARY ---
General Admission Date/PCP: 08/17/18 16:20 RAMSEY NARANJO MD Admission Date: 08/15/18 Transfer Date: 08/19/18 Accepting Facility: [facility] Resuscitation Status: Full Code - Transfer Diagnosis (1) Pubic ramus fracture Is this a current diagnosis for this admission?: Yes (2) Radial head fracture Is this a current diagnosis for this admission?: Yes - Transfer Medications Home Medications: Esomeprazole Magnesium [Nexium 24Hr] 20 mg PO BID 08/15/18 Fexofenadine HCl [Michelle] 180 mg PO DAILY 08/15/18 Montelukast Sodium [Singulair 10 mg Tablet] 10 mg PO QHS 08/15/18 Transfer Medications: Current Medications Acetaminophen (Tylenol 325 Mg Tablet) 650 mg PO Q6HP PRN PRN Reason: MODERATE PAIN Stop: 09/15/18 10:31 Last Admin: 08/18/18 21:58 Dose: 650 mg Documented by: Duloxetine HCl (Cymbalta 30 Mg Capsule.Dr) 30 mg PO DAILY [facility] Stop: 09/14/18 15:14 Last Admin: 08/18/18 10:32 Dose: Not Given Documented by: Montelukast Sodium (Singulair 10 Mg Tablet) 10 mg PO QHS [facility] Stop: 09/16/18 21:59 Last Admin: 08/18/18 21:57 Dose: 10 mg Documented by: Pantoprazole Sodium (Protonix [address] Tablet) 40 mg PO ACBRKFST [facility] Stop: 09/16/18 09:14 Last Admin: 08/18/18 07:56 Dose: 40 mg Documented by: - Allergies Allergies/Adverse Reactions: codeine [Codeine] Allergy (Verified 08/14/18 17:46) metronidazole [Metronidazole] Allergy (Verified 08/14/18 17:46) morphine [Morphine] Allergy (Verified 08/14/18 17:46) procaine HCl [From Novocain] Allergy (Verified 08/14/18 17:46) Mucxaaa-Nco-Fol Reductase Inhibitor Allergy (Verified 08/14/18 17:46) - Diet/Activity Discharge Diet: Regular Discharge Activity: Supervised Activity Hospital Course Hospital Course: Although she could not transfer without help on arrival, now she walkers bello with platform for R elbow. Physical Exam Vital Signs: Temp Pulse Resp BP Pulse Ox 98.3 F 81 16 141/59 H 96 04/19/19 00:00 08/19/18 00:00 08/19/18 00:00 08/19/18 00:00 08/19/18 00:00 Intake & Output 08/17/18 08/18/18 08/19/18 07:59 07:59 07:59 Intake Total 740 1575 1997 Output Total 780 500 Balance -40 1075 1997 General appearance: PRESENT: no acute distress Respiratory exam: PRESENT: clear to auscultation mavis Cardiovascular exam: ABSENT: diastolic murmur, irregular rhythm, systolic murmur GI/Abdominal exam: ABSENT: mass, organolmegaly, tenderness Extremities exam: ABSENT: pedal edema Neurological exam: PRESENT: oriented to situation Psychiatric exam: PRESENT: appropriate affect Results Laboratory Results: Labs- Last Values WBC 14.0 10^3/uL (4.0-10.5) H 08/14/18 18:26 RBC 4.53 10^6/uL (3.72-5.28) 08/14/18 18:26 Hgb 13.1 g/dL (12.0-15.5) 08/14/18 18:26 Hct 39.5 % (36.0-47.0) 08/14/18 18:26 MCV 87 fl (80-97) 08/14/18 18:26 MCH 29.0 pg (27.0-33.4) 08/14/18 18:26 MCHC 33.3 g/dL (32.0-36.0) 08/14/18 18:26 RDW 13.8 % (11.5-14.0) 08/14/18 18:26 Plt Count 190 10^3/uL (150-450) 08/14/18 18:26 Total Counted 100 08/14/18 18:26 Seg Neutrophils % Not Reportable 08/14/18 18:26 Seg Neuts % (Manual) 93 % (42-78) H 08/14/18 18:26 Lymphocytes % Not Reportable 08/14/18 18:26 Lymphocytes % (Manual) 5 % (13-45) L 08/14/18 18:26 Monocytes % Not Reportable 08/14/18 18:26 Monocytes % (Manual) 2 % (3-13) L 08/14/18 18:26 Eosinophils % Not Reportable 08/14/18 18:26 Eosinophils % (Manual) 0 % (0-6) 08/14/18 18:26 Basophils % Not Reportable 08/14/18 18:26 Basophils % (Manual) 0 % (0-2) 08/14/18 18:26 Absolute Neutrophils Not Reportable 08/14/18 18:26 Abs Neuts (Manual) 13.0 10^3/uL (1.7-8.2) H 08/14/18 18:26 Absolute Lymphocytes Not Reportable 08/14/18 18:26 Abs Lymphs (Manual) 0.7 10^3/uL (0.5-4.7) 08/14/18 18:26 Absolute Monocytes Not Reportable 08/14/18 18: Abs Monocytes (Manual) 0.3 10^3/uL (0.1-1.4) 08/14/18 18:26 Absolute Eosinophils Not Reportable 08/14/18 18:26 Absolute Eos (Manual) 0.0 10^3/uL (0.0-0.6) 08/14/18 18:26 Absolute Basophils Not Reportable 08/14/18 18:26 Abs Basophils (Manual) 0.0 10^3/uL (0.0-0.2) 08/14/18 18:26 Toxic Granulation 1+ 08/14/18 18:26 Platelet Comment ADEQUATE 08/14/18 18:26 RBC Morph Comment NORMO-CYTIC/CHROMIC 08/14/18 18:26 Sodium 140.4 mmol/L (137-145) 08/14/18 18:26 Potassium 4.1 mmol/L (3.6-5.0) 08/14/18 18:26 Chloride 104 mmol/L (98-107) 08/14/18 18:26 Carbon Dioxide 24 mmol/L (22-30) 08/14/18 18:26 Anion Gap 12 (5-19) 08/14/18 18:26 BUN 16 mg/dL (7-20) 08/14/18 18:26 Creatinine 0.63 mg/dL (0.52-1.25) 08/14/18 18:26 Est GFR ( Amer) > 60 (>60) 08/14/18 18:26 Est GFR (Non-Af Amer) > 60 (>60) 08/14/18 18:26 Glucose 110 mg/dL (75-110) 08/14/18 18:26 Calcium 9.3 mg/dL (8.4-10.2) 08/14/18 18:26 Total Bilirubin 0.6 mg/dL (0.2-1.3) 08/14/18 18:26 Direct Bilirubin 0.3 mg/dL (0.0-0.4) 08/14/18 18:26 Neonat Total Bilirubin Not Reportable 08/14/18 18:26 Neonat Direct Bilirubin Not Reportable 08/14/18 18:26 Neonat Indirect Bili Not Reportable 08/14/18 18:26 AST 18 U/L (14-36) 08/14/18 18:26 ALT 27 U/L (9-52) 08/14/18 18:26 Alkaline Phosphatase 75 U/L (38-126) 08/14/18 18:26 Total Protein 7.1 g/dL (6.3-8.2) 08/14/18 18:26 Albumin 4.3 g/dL (3.5-5.0) 08/14/18 18:26 Impressions: Cervical Spine CT 08/14/18 17:09 IMPRESSION: No acute fracture at the cervical spine. Degenerative changes. Elbow X-Ray 08/14/18 17:09 IMPRESSION: Comminuted nondisplaced radial head fracture with joint effusion. Head CT 08/14/18 17:09 IMPRESSION: No acute intracranial hemorrhage or depressed calvarial fracture. Chronic changes of atrophy and microvascular ischemia. EVIDENCE OF ACUTE STROKE: NO. Hip/Pelvis X-Ray 08/14/18 17:09 IMPRESSION: 1. Osteopenia. Mildly displaced fractures at the superior and inferior right pubic rami. 2. Status post total right hip arthroplasty with no radiographic evidence for acute fracture at the right hip. Plan Discharge Plan: to [facility] for acute rehab
[2018-08-19 09:29] VITALS: BP 141/59
== END 2018-08-19 09:56 | DRG 536 ==
LOC: ER 16:42 → EH 08-15 12:16 → 4S 08-15 14:34 → OBSVTOIN 08-17 16:20
PROVIDERS: ADMIT Family Medicine; ATTEND Family Medicine
DX: S32.591A Other specified fracture of right pubis, initial encounter for closed fracture (principal); S52.124A Nondisplaced fracture of head of right radius, initial encounter for closed fracture; G89.11 Acute pain due to trauma; W19.XXXA Unspecified fall, initial encounter; Y92.009 Unspecified place in unspecified non-institutional (private) residence as the place of occurrence of the external cause; Z96.641 Presence of right artificial hip joint; Z88.6 Allergy status to analgesic agent; Z96.652 Presence of left artificial knee joint
CPT/HCPCS: 36415; 70450; 72125; 80053; 85025; 99285; G0378; J1650; J1741; J2405; J3490; J7050